=== PATIENT | female | born 1995 | race African-American/Black ===

== ENCOUNTER 2016-06-05 21:49 | Emergency (ER) | payer MEDICAID ==
[~2016-06-05] VITALS: Ht 170.2 cm; Wt 81.8 kg
[2016-06-05 22:29] LABS: APPEARANCE,URINE CLOUDY (CLEAR); GLUCOSE, URINE (UA) NEGATIVE (NEGATIVE); KETONES,URINE 15 mg/dL (NEGATIVE); LEUKOCYTE ESTERASE ,URINE LARGE (NEGATIVE); OCCULT BLOOD,URINE LARGE (NEGATIVE); PROTEIN,URINE SEE CONFIRM (NEGATIVE)
[2016-06-05 22:41] LABS: SULFOSALICYLIC ACID,URINE 2+ (Negative)
[2016-06-05 22:42] LABS: WBC,URINE >100 /HPF (0-5)
[2016-06-06 01:39] VITALS: BP 120/74
== END 2016-06-06 01:42 | disposition home or self-care (01) ==
LOC: EMS 21:50
DX: N39.0 Urinary tract infection, site not specified (principal)
CPT/HCPCS: 87086; 99284

== ENCOUNTER 2025-01-25 08:29 | Emergency (ER) | payer MEDICAID, OTHER ==
[~2025-01-25] VITALS: Ht 172.7 cm; Wt 87.3 kg
[2025-01-25 09:06] LABS: PLATELET COUNT (AUTO) 261 K/uL (150-450); RED BLOOD CELL COUNT(AUTO) 4.96 MIL/uL (4.00-5.20); RED CELL DISTRIBUTION WIDTH 18.7 % (11.5-14.5); WHITE BLOOD COUNT (AUTO) 14.8 K/uL (4.5-11.0)
[2025-01-25] MEDS: PB/HYOSCY/ATR/SCOP/LIDO/MAALOX 55 ML BOTTLE PO ONE (09:09)
[2025-01-25] MEDS: ONDANSETRON 4 MG TABLET PO ONE (09:09)
[2025-01-25] MEDS: OMEPRAZOLE 20 MG CAPSULE PO ONE (09:10)
[2025-01-25 09:20] LABS: CALCIUM, TOTAL 8.7 mg/dL (8.8-10.5); CREATININE 0.70 mg/dL (0.60-1.30); GLOMERULAR FILTR. RATE CALC > 60 mL/min (>60); GLUCOSE,RANDOM 80 mg/dL (70-110); SODIUM SERUM 139 mmol/L (136-145); UREA NITROGEN, BLOOD 4 mg/dL (7-18)
[2025-01-25 10:49] VITALS: BP 122/83; PULSE 68; RESP 15; TEMP 98.3; O2SAT 99
== END 2025-01-25 10:56 | disposition short-term general hospital (02) ==
LOC: EMS 08:31
DX: S71.111A Laceration without foreign body, right thigh, initial encounter (principal); K29.70 Gastritis, unspecified, without bleeding; R11.10 Vomiting, unspecified; F25.9 Schizoaffective disorder, unspecified; F12.90 Cannabis use, unspecified, uncomplicated; Z88.5 Allergy status to narcotic agent; X78.9XXA Intentional self-harm by unspecified sharp object, initial encounter; Y93.89 Activity, other specified; Y92.89 Other specified places as the place of occurrence of the external cause; Y99.8 Other external cause status
CPT/HCPCS: 99285; 80048; 83690; 85025; 36415; Q0162